=== PATIENT | female | born 1990 | race Caucasian/White ===

== ENCOUNTER 2018-07-19 10:27 | Inpatient (IN) | payer OTHER ==
[~2018-07-19] VITALS: Ht 175.3 cm; Wt 58.0 kg
[2018-07-19] MEDS ORDERED: insulin regular, human 10 units/0.1 ml syringe IV ONE (11:10)
[2018-07-19] MEDS ORDERED: normal saline 1000ML IV soln IVB ONE (11:10)
[2018-07-19] MEDS ORDERED: ondansetron/PF 4mg/2ml inj IV ONE (11:10)
[2018-07-19 11:24] LABS: BASOPHILS % (AUTO) 0.3 % (0-1); EOSINOPHILS # (AUTO) 0.1 X10'3 (0-0.9); EOSINOPHILS % (AUTO) 3.1 % (0-6); HEMATOCRIT 41.6 % (35.0-45.0); HEMOGLOBIN 14.6 g/dl (12.0-16.0); LYMPHOCYTES # (AUTO) 0.9 X10'3 (1.1-4.8); LYMPHOCYTES % (AUTO) 24.1 % (21-51); MEAN CORPUSCULAR HEMOGLOBIN 31.9 PG (27.0-31.0); MEAN CORPUSCULAR HGB CONC 35.1 % (33.0-36.5); MEAN CORPUSCULAR VOLUME 90.9 FL (78-98); MONOCYTES # (AUTO) 0.4 X10'3 (0-0.9); MONOCYTES % (AUTO) 10.5 % (2-12); NEUTROPHILS # (AUTO) 2.4 X10'3 (1.8-7.7); PLATELET COUNT 277 X10'3 (140-440); RED BLOOD COUNT 4.57 X10'6 (4.20-5.60); RED CELL DISTRIBUTION WIDTH 16.5 % (11.5-14.5); WHITE BLOOD COUNT 3.8 X10'3 (4.5-11.0)
--- NOTE | 2018-07-19 11:30 | NUR ---
PATIENT AMB TO ER #14 WITH C/O 20# WEIGHT LOSS, INCREASED THIRST, SUGARY TASTE IN MOUTH, AND HUNGER. STATES SHE CALLED HER DOCTOR AND WAS INSTRUCTED TO COME TO ER FOR EVALUATION FOR NEW ONSET OF DIABETES. ACCOMPANIED BY SIG OTHER.
[2018-07-19 11:38] LABS: ALANINE AMINOTRANSFERASE 31 U/L (12-78); ALBUMIN 3.7 G/DL (3.4-5.0); ALBUMIN/GLOBULIN RATIO 1.1 (1.1-1.5); ALKALINE PHOSPHATASE 128 IU/L (46-116); ANION GAP 21 (8-16); ASPARTATE AMINO TRANSFERASE 16 U/L (10-37); BILIRUBIN,TOTAL 0.6 MG/DL (0.1-1.0); BLOOD UREA NITROGEN 7 MG/DL (7-18); BUN/CREATININE RATIO 9.7 (6.6-38.0); CALCIUM 8.4 MG/DL (8.5-10.1); CHLORIDE 101 MMOL/L (99-107); CREATININE 0.72 MG/DL (0.40-0.90); GLUCOSE 446 MG/DL (70-104); MAGNESIUM 1.9 MG/DL (1.5-2.4); POTASSIUM 3.5 MMOL/L (3.5-5.1); SODIUM 136 MMOL/L (135-145); TOTAL PROTEIN 7.1 G/DL (6.4-8.2); eGFR > 90 ML/MIN
[2018-07-19 11:43] LABS: TOTAL CARBON DIOXIDE 14.3 MMOL/L (24-32)
[2018-07-19] MEDS: insulin regular, human 100 UNIT in normal saline 100ml IV soln 100 ML IV PRN ×4 (11:59→13:23)
[2018-07-19 12:07] LABS: CLARITY,URINE CLEAR (Clear); COLOR,URINE STRAW (Yellow); GLUCOSE, URINE >=1000 mg/dl (Neg); KETONES,URINE >=80 mg/dl (Neg); LEUKOCYTE ESTERASE ,URINE NEGATIVE (Neg); NITRITES, URINE NEGATIVE (Neg); OCCULT BLOOD,URINE NEGATIVE (Neg); PROTEIN,URINE NEGATIVE (Neg); UROBILINOGEN,URINE 0.2 E.U/dL (0.2-1.0)
[2018-07-19 12:09] LABS: URINE HCG NEGATIVE (NEG)
[2018-07-19 12:13] LABS: UA COLLECTION TYPE CLN CATCH MIDSTREAM
[2018-07-19 12:16] LABS: BACTERIA,URINE FEW /HPF (Neg); MUCUS STRANDS NONE SEEN /LPF (Neg); RBC,URINE NONE SEEN /HPF (0-2); SQUAMOUS EPITHELIAL CELL,UR FEW /LPF (FEW); WBC,URINE 0-4 /HPF (0-4)
[2018-07-19] MEDS ORDERED: potassium Cl 20mEq in NS 1,000 ML IV SCH (12:23)
[2018-07-19] MEDS ORDERED: potassium Cl 20 mEq SR tablet PO PRN ×2 (12:25)
[2018-07-19] MEDS ORDERED: magnesium 4gm in 100ml NS 100 ML IV PRN (12:25)
[2018-07-19] MEDS ORDERED: ondansetron/PF 4mg/2ml inj IV PRN (12:25)
[2018-07-19] MEDS ORDERED: mag hydrox/Alum hydrox/simeth 30ml oral suspension PO PRN (12:25)
[2018-07-19] MEDS: K and/or MAG REPLACEMENT MC SCH (12:25)
[2018-07-19] MEDS ORDERED: potassium Cl 40MEQ/NS 500ml 500 ML IV PRN ×2 (12:25)
[2018-07-19] MEDS ORDERED: bisacodyl 10mg suppository rectal RC PRN (12:25)
[2018-07-19] MEDS ORDERED: magnesium hydroxide 30ml (MOM) UD suspension PO PRN (12:25)
[2018-07-19] MEDS ORDERED: acetaminophen 325mg tablet PO PRN (12:25)
[2018-07-19] MEDS ORDERED: magnesium 2GM in 50ml NS 50 ML IV PRN (12:25)
[2018-07-19] MEDS ORDERED: magnesium Cl slow-release 64mg tablet PO PRN (12:25)
[2018-07-19] MEDS ORDERED: insulin regular, DKA only 100 UNIT in normal saline 100ml IV soln 99 ML IV SCH ×2 (12:26)
[2018-07-19] MEDS ORDERED: Potassium Cl inj 20 MEQ in normal saline 1000ml 1,000 ML IV SCH (12:26)
[2018-07-19] MEDS ORDERED: potassium CL 20mEq in D5-1/2NS 1,000 ML IV PRN (12:26)
[2018-07-19] MEDS ORDERED: sodium phosphate inj. 15 MMOL in dextrose 5%-water 150 ML IV PRN (12:30)
[2018-07-19] MEDS ORDERED: Neutra Phos packet PO PRN (12:30)
[2018-07-19] MEDS ORDERED: sodium phosphate inj. 30 MMOL in dextrose 5%-water 250 ML IV PRN (12:30)
[2018-07-19] MEDS ORDERED: NO HOME MEDS (12:44)
[2018-07-19 13:05] LABS: ANION GAP 18 (8-16); BLOOD UREA NITROGEN 6 MG/DL (7-18); BUN/CREATININE RATIO 9.5 (6.6-38.0); CALCIUM 6.9 MG/DL (8.5-10.1); CHLORIDE 109 MMOL/L (99-107); CREATININE 0.63 MG/DL (0.40-0.90); GLUCOSE 215 MG/DL (70-104); PHOSPHORUS 1.9 MG/DL (2.3-4.5); SODIUM 142 MMOL/L (135-145); TOTAL CARBON DIOXIDE 15.5 MMOL/L (24-32); eGFR > 90 ML/MIN
[2018-07-19 13:10] LABS: POTASSIUM 2.9 MMOL/L (3.5-5.1)
[2018-07-19] MEDS: potassium 10mEq/100ml NS w/LIDOcaine (10mg/bag) IV SCH ×2 (13:42→15:09)
[2018-07-19] MEDS ORDERED: potassium phosphate inj 30 MMOL in normal saline 500ml IV soln 490 ML IV STA (14:53)
[2018-07-19 16:56] LABS: ABG BASE EXCESS -8.2 mmol/L (-2.0-3.0); ABG HCO3 16.3 mmol/L (22.0-26.0); ABG OXYGEN SATURATION 97.5 % (95-98); ABG PCO2 (T) 30.5 mmHg (32.0-45.0); ABG PH (T) 7.345 (7.350-7.450); ABG PO2 (T) 100.2 mmHg (83-108); ALLEN'S TEST Positive; FMetHb 0.2 % (0.3-1.12); FO2Hb 97.3 % (94-100); TOTAL HEMOGLOBIN 13.1 G/dl (12.0-16.0)
[2018-07-19 17:32] LABS: ANION GAP 11 (8-16); BLOOD UREA NITROGEN 6 MG/DL (7-18); BUN/CREATININE RATIO 9.7 (6.6-38.0); CALCIUM 7.3 MG/DL (8.5-10.1); CHLORIDE 107 MMOL/L (99-107); CREATININE 0.62 MG/DL (0.40-0.90); GLUCOSE 265 MG/DL (70-104); PHOSPHORUS 2.3 MG/DL (2.3-4.5); SODIUM 139 MMOL/L (135-145); TOTAL CARBON DIOXIDE 21.5 MMOL/L (24-32); eGFR > 90 ML/MIN
[2018-07-19 17:33] LABS: POTASSIUM 2.9 MMOL/L (3.5-5.1)
[2018-07-19] MEDS ORDERED: glucagon, human recombinant 1mg kit SUBCUT PRN (17:55)
[2018-07-19] MEDS ORDERED: dextrose ORAL solution 15 GM/59 ML bottle PO PRN ×2 (17:55)
[2018-07-19] MEDS ORDERED: MESSAGE TO PHARMACY PO ONE (17:55)
[2018-07-19] MEDS ORDERED: dextrose 50%-water 50ml dispensing syringe IV PRN ×2 (17:55)
--- NOTE | 2018-07-19 17:58 | NUR ---
SPOKE WITH DR JOHNSON. STATED PLACING ORDERS TO TAKE PT OFF DKA PROTOCOL. ORDER TO GIVE INSULIN 4 UNITS SQ, 30 MIN LATER TO STOP THE INSULIN GTT AND CHANGE FLUIDS TO NS WITH 20K RUNNING AT 150ML/HR.
[2018-07-19] MEDS ORDERED: insulin regular, human 10 units/0.1 ml syringe SQ ONE (18:00)
--- NOTE | 2018-07-19 18:00 | NUR ---
SERVED CHO CONTROLLED DIET. IV FLUIDS INFUSING WELL. LAB CALLED WITH CRITICAL K+ OF 2.9.
--- NOTE | 2018-07-19 18:40 | NUR ---
PT PLACED ON 5 LEAD MONITOR FOR LOW POTASSIUM AND REPLACEMENT
[2018-07-19] MEDS: Potassium Cl inj 20 MEQ in normal saline 1000ml 990 ML IV SCH (19:07)
--- NOTE | 2018-07-19 19:16 | NUR ---
Per md orders, insulin drip stopped at 1835. Pt consumed 53 g, denies N/V. c/o irritation in IV Site with K running. Switched K to another IV site for comfort and rate decreased. NS 20K also running at reduced rate to avoid IV irritation.
[2018-07-19] MEDS ORDERED: insulin glargine (Lantus) pen - multi-dose SQ SCH (21:00)
--- NOTE | 2018-07-19 21:54 | NUR ---
Diabetic education provided for fingerstick blood glucose test and self injection of insulin. Pt stuck her own finger for BG check and self administered lantus succesfuly with supervision. Verbalized understanding of process of BG check and insulin adminstration.
[2018-07-20] MEDS: Potassium Cl inj 20 MEQ in normal saline 1000ml 990 ML IV SCH ×2 (00:55→11:49)
--- NOTE | 2018-07-20 07:30 | NUR ---
PT POKED SELF WITH GLUCOMETER, DM TRAINING
[2018-07-20] MEDS: K and/or MAG REPLACEMENT MC SCH (08:00)
[2018-07-20] MEDS ORDERED: enoxaparin 40mg/0.4ml syringe SUBCUT SCH (08:00)
[2018-07-20 08:04] LABS: ALANINE AMINOTRANSFERASE 24 U/L (12-78); ALBUMIN 3.1 G/DL (3.4-5.0); ALBUMIN/GLOBULIN RATIO 1.1 (1.1-1.5); ALKALINE PHOSPHATASE 101 IU/L (46-116); ANION GAP 14 (8-16); ASPARTATE AMINO TRANSFERASE 13 U/L (10-37); BILIRUBIN,TOTAL 0.5 MG/DL (0.1-1.0); BLOOD UREA NITROGEN 5 MG/DL (7-18); BUN/CREATININE RATIO 9.3 (6.6-38.0); CALCIUM 7.8 MG/DL (8.5-10.1); CHLORIDE 106 MMOL/L (99-107); CREATININE 0.54 MG/DL (0.40-0.90); GLUCOSE 222 MG/DL (70-104); MAGNESIUM 1.7 MG/DL (1.5-2.4); PHOSPHORUS 3.5 MG/DL (2.3-4.5); POTASSIUM 3.1 MMOL/L (3.5-5.1); SODIUM 139 MMOL/L (135-145); TOTAL CARBON DIOXIDE 18.9 MMOL/L (24-32); TOTAL PROTEIN 5.9 G/DL (6.4-8.2); eGFR > 90 ML/MIN
--- NOTE | 2018-07-20 08:07 | NUR ---
PT SITTING UP IN BED EATING, KNOWS HAS A ROOM
--- NOTE | 2018-07-20 08:20 | NUR ---
Patient in room ED 14. I have received report from Vee MONTERO and had the opportunity to ask questions and assume patient care.
--- NOTE | 2018-07-20 08:40 | NUR ---
Patient arrived to U 3027A, accompanied by MANAGER MEAT, Vee. Patient ambulated to bed with standby assistance. VS: T 97.9. HR 84, RR: 16, 02: 99 RA, BP 98/53. Patient oriented to room and call light. All questions answered. Patient is in no acute distress. Will continue to monitor.
[2018-07-20] MEDS: insulin Lispro (HumaLOG) vial - multi-dose SQ SCH ×2 (09:20→13:40)
[2018-07-20] MEDS ORDERED: LANTUS SQ (10:29)
[2018-07-20] MEDS ORDERED: POTA20TA19 PO (10:29)
[2018-07-20] MEDS ORDERED: INSU100V11 SQ (10:29)
[2018-07-20 11:00] VITALS: BP 91/59
--- NOTE | 2018-07-20 13:26 | NUR ---
DM Consult: Pt newly DX T1DM admit w/ DKA GLU 467 A1C 11.3, and hx 20# wt loss past 1.5 months. Advanced to carb controlled diet and PO 75% first meal. RD met w/ pt/ at bedside and provided written/verbal DM ed, new DM pamphlet, recommended attending CDE course and establishing w/ county records management officer, and RD contact information in case further questions. RD reviewed meal frequency, portion sizing, types of carbs, proper GLU maintenance during exercise, importance of proteins, and fast food options. Pt reports hx colon polyps and already follows high fiber diet at home. RD also reviewed DEX tabs and foods to go to when having lows in addition to recommending pt to notify her PCP if ever having consistent lows in AM. Pt/ have no further questions at this time. D/c orders pending. Will continue to monitor. Rec: 1. continue carb controlled diet 2. monitor for additional questions/concerns w/ new T1DM 3. routine bowel care per MD for hx colon polyps 4. wt per rx Addendum: 07/20/18 at [address] Amended: Links added.
--- NOTE | 2018-07-20 13:27 | NUR ---
Paged Dr. Morrison: PAGER ID: [phone] MESSAGE: Chayo PCU [phone]. RE: Nurys Singer [phone]. Have glucometer for patient to take home but it only comes with 10 strips. Can I call in an rx for extra strips for patient to her pharmacy. Thank you. Chayo
--- NOTE | 2018-07-20 13:29 | NUR ---
New Order per Dr. Morrison: 100 accu-check test strips, 100 insulin syringes (1 mL). Will call order into [facility] for patient.
--- NOTE | 2018-07-20 14:45 | NUR ---
Patient stable for discharge per MD orders. New prescriptions called into [facility] on [facility]. Education provided to patient on SQ Humalog/lantus administration. Patient provided glucometer for blood glucose assessment. Patient provided information on Saturday diabetes class at [facility]. PIV discontinued, cannula intact. Telemetry monitoring discontinued. All questions answered regarding discharge. All belongings sent with patient to home in private vehicle accompanied by . Patient wheeled out to parking lot by PCT.
== END 2018-07-20 14:45 | disposition home or self-care (01) | DRG 639 ==
LOC: ER 10:28 → ED HOLD 12:23 → PCU 3S 07-20 08:30
PROVIDERS: ADMIT Internal Medicine; ATTEND Internal Medicine
DX: E10.10 Type 1 diabetes mellitus with ketoacidosis without coma (principal); E87.5 Hyperkalemia; E87.6 Hypokalemia; Z79.4 Long term (current) use of insulin
CPT/HCPCS: 36415; 36600; 80048; 80053; 81001; 81025; 82803; 82948; 83036; 83735; 84100; 84132; 85018; 85025; 96361; 96374; 99285; G0378; J1815; J3480; J7030